=== PATIENT | male | born 1980 | race American Indian/Alaskan Native ===

== ENCOUNTER 2021-03-09 19:01 | Emergency (ER) | payer MEDICARE ==
[2021-03-09 19:36] VITALS: BP 144/76
[2021-03-09] MEDS ORDERED: LIDOCAINE (2%) 20 MG/1 ML VIAL 20 ML MDV INFILTRATI STA (20:20)
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
== END 2021-03-09 21:50 | disposition home or self-care (01) ==
LOC: ED 19:01
DX: S01.511A Laceration without foreign body of lip, initial encounter (principal); Y08.89XA Assault by other specified means, initial encounter; Y93.89 Activity, other specified; Y92.89 Other specified places as the place of occurrence of the external cause; Y99.8 Other external cause status
CPT/HCPCS: 99282